=== PATIENT | male | born 1980 | race Caucasian/White ===

== ENCOUNTER 2021-12-03 22:14 | Emergency (ER) | payer BC ==
[2021-12-03 22:50] LABS: BASOPHILS # (AUTO) 0.1 10^3/uL (0.0-0.1); BASOPHILS % (AUTO) 0.8 %; EOSINOPHILS # (AUTO) 0.1 10^3/uL (0.0-0.7); EOSINOPHILS % (AUTO) 1.8 %; HCT - HEMATOCRIT 46.4 % (42.0-52.0); HGB - HEMOGLOBIN 15.3 g/dL (14.0-18.0); LYMPHOCYTES # (AUTO) 2.8 10^3/uL (1.5-3.5); LYMPHOCYTES % (AUTO) 37.4 %; MEAN CORPUSCULAR HEMOGLOBIN 28.7 pg (27.0-31.0); MEAN CORPUSCULAR VOLUME 86.9 fL (80.0-94.0); MEAN PLATELET VOLUME 10.9 fL (7.4-11.4); MONOCYTES # (AUTO) 0.7 10^3/uL (0.0-1.0); MONOCYTES % (AUTO) 9.8 %; NEUTROPHILS # (AUTO) 3.7 10^3/uL (1.5-6.6); NEUTROPHILS % (AUTO) 50.1 %; PLT - PLATELET COUNT 284 10^3/uL (130-450); RED BLOOD COUNT 5.34 10^6/uL (4.70-6.10); RED CELL DISTRIBUTION WIDTH 14.1 % (12.0-15.0); WHITE BLOOD COUNT 7.4 x10^3/uL (4.8-10.8)
[2021-12-03 23:05] LABS: ALBUMIN 4.1 g/dL (3.2-5.5); ALBUMIN/GLOBULIN RATIO 1.1 (1.0-2.2); BILIRUBIN,TOTAL 0.5 mg/dL (0.2-1.0); CALCIUM 9.5 mg/dL (8.5-10.3); TOTAL PROTEIN 7.9 g/dL (6.7-8.2)
--- NOTE | 2021-12-03 23:50 | XRAY Report ---
PROCEDURE: Chest 1 View X-Ray INDICATIONS: Chest pain TECHNIQUE: One view of the chest was acquired. COMPARISON: None. FINDINGS: Surgical changes and devices: None. Lungs and pleura: No pleural effusions or pneumothorax. Lungs are clear. Mediastinum: Mediastinal contours appear normal. Heart size is normal. Bones and chest wall: No suspicious bony lesions. Overlying soft tissues appear unremarkable. IMPRESSION: No pneumonia found, source of chest pain is not identified. Reviewed by: Yasir Scanlon MD on 12/03/2021 11:53 PM PDT Approved by: Yasir Scanlon MD on 12/03/2021 11:53 PM PDT Station ID: [id number]
--- NOTE | 2021-12-04 01:39 | ED Physician Documentation ---
PD HPI HEENT - Stated complaint Stated Complaint: RAPID HEART/LIGHT HEADED - Chief complaint Chief Complaint: Cardiac - History obtained from History obtained from: Patient - History of Present Illness Timing - onset: How many days ago (has had intermittent feeling of lightheaded the past 2-3 days with feeling of heart going fast, briefly for few seconds. Has some feeling of tenderness left anterior neck, worse with swallowing.) Timing - duration: Days Timing - details: Gradual onset, Intermittant Location: Other (anterior neck at side of hyoid bone.). No: Throat, Tooth, Mouth Worsens: Swalllowing, Other (palpation and movement of anterior neck (tucking chin down, etc)) Associated symptoms: No: Fever, Congestion, Rhinorrhea, Swollen nodes, Facial swelling Similar symptoms before: Has not had sx before Recently seen: Not recently seen PD PAST MEDICAL HISTORY - Present Medications Home Medications: Ambulatory Orders Medication Instructions Recorded Confirmed dexAMETHasone [Decadron] 4 mg PO DAILY #5 tablet 12/04/21 - Allergies Allergies/Adverse Reactions: Allergies Allergy/AdvReac Type Severity Reaction Status Date / Time No Known Drug Allergies Allergy Verified 12/03/21 22:28 PD ED PE NORMAL - Vitals Vital signs reviewed: Yes - General General: Alert and oriented X 3, Well developed/nourished, Other (not in pain. Does express anxiety over the symptoms. Normal voice timber and tone. ) - HEENT HEENT: PERRL, EOMI (no eyelid droop.), Ears normal, Moist mucous membranes, Pharynx benign - Neck Neck: Supple, no meningeal sign, No bony TTP, No adenopathy, Other (anterior neck without stridor nor abnormal phonation. There is tenderness left lateral aspect of hyoid bone. no redness nor swelling. No adenopathy. No bruits. The carotid feels normal. Bedside US by me showed normal caliber and flow in left carotid, no noted intimal flaps/swelling; soft tissue nl. ) - Cardiac Cardiac: RRR, No murmur - Respiratory Respiratory: Clear bilaterally - Neuro Neuro: Alert and oriented X 3, No motor deficit, No sensory deficit, Normal speech Eye Opening: Spontaneous Motor: Obeys Commands Verbal: Oriented GCS Score: 15 - Psych Psych: Normal mood. No: Normal affect (anxious) Results - Vitals Vitals: Oxygen O2 Source Room air - EKG (time done) 22:31 Rate: Rate (enter#) (79) Rhythm: NSR [place]: Normal Intervals: Normal GA QRS: Poor R wave progression Ischemia: Normal ST segments. No: ST elevation c/w ischemia, ST depression - Labs Labs: Laboratory Tests 12/03/21 12/03/21 12/03/21 22:43 22:43 22:43 WBC 7.4 RBC 5.34 Hgb 15.3 Hct 46.4 MCV 86.9 MCH 28.7 MCHC 33.0 RDW 14.1 Plt Count 284 MPV 10.9 Neut # (Auto) 3.7 Lymph # (Auto) 2.8 [place] # (Auto) 0.7 Eos # (Auto) 0.1 Baso # (Auto) 0.1 Absolute Nucleated RBC 0.00 Nucleated RBC % 0.0 Sodium 134 L Potassium 4.0 Chloride 97 L Carbon Dioxide 29 Anion Gap 8.0 BUN 16 Creatinine 1.0 Estimated GFR (MDRD) 83 L Glucose 98 Calcium 9.5 Total Bilirubin 0.5 AST 20 ALT 24 Alkaline Phosphatase 49 Troponin I High Sens 2.9 Total Protein 7.9 Albumin 4.1 Globulin 3.8 Albumin/Globulin Ratio 1.1 Lipase 41 - Rads (name of study) chest xray Radiology: Prelim report reviewed (normal), See rad report PD MEDICAL DECISION MAKING - ED course Complexity details: reviewed results, considered differential (nursing triage orders for the lightheaded/palpitations feeling. Main complaint is of the anterior neck pain. Unclear cause of that. Not clear on the lightheaded. The other symptoms are not correlated with him palpating the neck area but could consider some vagal effect from the cause of the pain.), d/w patient Departure - Departure Disposition: 01 Home, Self Care Clinical Impression: Light-headed feeling, Anterior neck pain Condition: Stable Instructions: ED Neck Pain No Trauma Follow-Up: [facility] [Provider Group] Prescriptions: dexAMETHasone [Decadron] 4 mg PO DAILY #5 tablet Comments: Your EKG, chest x-ray, blood tests are good without any signs of heart irregularity or heart attack or injury. The limited bedside ultrasound of your neck did not show any obvious abnormality of the carotid artery and no obvious masses. There was perhaps a small lymph node visible in that area. This might be some tenderness of that. Alternatively would be a muscular pain off of the throat bone called the hyoid. Think is reasonable to treat this with the anti-inflammatories again. You can either use your prednisone left over that you have at home or I wrote a prescription for Decadron. There essentially equivalent type of medication. Use the steroid for 4 to 5 days. Add Tylenol if needed for pain. Recheck if not improved over the next several days. Discharge Date/Time: 12/04/21 01:52
[2021-12-04] MEDS ORDERED: CHERRY SYRUP 10 ML UDC PO ONE (01:40)
[2021-12-04] MEDS ORDERED: DEXAMETHASONE 10 MG/ML VIAL PO STA (01:40)
--- NOTE | 2021-12-04 01:43 | ED Physician Documentation ---
PD HPI HEENT - Stated complaint Stated Complaint: RAPID HEART/LIGHT HEADED - Chief complaint Chief Complaint: Cardiac - History obtained from History obtained from: Patient PD PAST MEDICAL HISTORY - Present Medications Home Medications: Ambulatory Orders Medication Instructions Recorded Confirmed dexAMETHasone [Decadron] 4 mg PO DAILY #5 tablet 12/04/21 - Allergies Allergies/Adverse Reactions: Allergies Allergy/AdvReac Type Severity Reaction Status Date / Time No Known Drug Allergies Allergy Verified 12/03/21 22:28 Results - Vitals Vitals: Vital Signs - 24 hr 12/03/21 12/04/21 22:24 00:08 Temperature 36.2 C L Heart Rate 71 72 Respiratory 16 16 Rate Blood Pressure 130/87 H 112/75 O2 Saturation 98 98 Oxygen O2 Source Room air - Labs Labs: Laboratory Tests 12/03/21 12/03/21 12/03/21 22:43 22:43 22:43 WBC 7.4 RBC 5.34 Hgb 15.3 Hct 46.4 MCV 86.9 MCH 28.7 MCHC 33.0 RDW 14.1 Plt Count 284 MPV 10.9 Neut # (Auto) 3.7 Lymph # (Auto) 2.8 [place] # (Auto) 0.7 Eos # (Auto) 0.1 Baso # (Auto) 0.1 Absolute Nucleated RBC 0.00 Nucleated RBC % 0.0 Sodium 134 L Potassium 4.0 Chloride 97 L Carbon Dioxide 29 Anion Gap 8.0 BUN 16 Creatinine 1.0 Estimated GFR (MDRD) 83 L Glucose 98 Calcium 9.5 Total Bilirubin 0.5 AST 20 ALT 24 Alkaline Phosphatase 49 Troponin I High Sens 2.9 Total Protein 7.9 Albumin 4.1 Globulin 3.8 Albumin/Globulin Ratio 1.1 Lipase 41 Departure - Departure Disposition: 01 Home, Self Care Clinical Impression: Light-headed feeling, Anterior neck pain Condition: Stable Record reviewed to determine appropriate education?: Yes Instructions: ED Neck Pain No Trauma Follow-Up: [facility] [Provider Group] Prescriptions: dexAMETHasone [Decadron] 4 mg PO DAILY #5 tablet Comments: Your EKG, chest x-ray, blood tests are good without any signs of heart irregularity or heart attack or injury. The limited bedside ultrasound of your neck did not show any obvious abnormality of the carotid artery and no obvious masses. There was perhaps a small lymph node visible in that area. This might be some tenderness of that. Alternatively would be a muscular pain off of the throat bone called the hyoid. Think is reasonable to treat this with the anti-inflammatories again. You can either use your prednisone left over that you have at home or I wrote a prescription for Decadron. There essentially equivalent type of medication. Use the steroid for 4 to 5 days. Add Tylenol if needed for pain. Recheck if not improved over the next several days.
[2021-12-04] MEDS ORDERED: ACETAMINOPHEN 325 MG TABLET PO STA (01:44)
[2021-12-04 01:54] VITALS: BP 114/72
== END 2021-12-04 01:52 | disposition home or self-care (01) ==
LOC: ED 22:14
DX: M54.2 Cervicalgia (principal); R42 Dizziness and giddiness
CPT/HCPCS: 36415; 71045; 80053; 83690; 84484; 85025; 93005; 99281; 99284; A9270